=== PATIENT | female | born 1975 | race Native Hawaiian/Other Pacific Islander ===

== ENCOUNTER 2017-06-02 14:37 | Emergency (ER) | payer SELFPAY ==
[2017-06-02 14:48] VITALS: BP 100/67; PULSE 61; RESP 18; TEMP 97.4; O2SAT 100
--- NOTE | 2017-06-02 15:09 | C.PDOC ---
Time Seen by Provider: 06/02/17 14:53 Chief Complaint (Nursing): Upper Extremity Problem/Injury Past Medical History Vital Signs: Last Vital Signs Temp 97.4 F L 06/02/17 14:42 Pulse 61 06/02/17 14:42 Resp 18 06/02/17 14:42 BP 100/67 06/02/17 14:42 Pulse Ox 100 06/02/17 15:09 Family History: States: Unknown Family Hx - Social History Hx Alcohol Use: No Hx Substance Use: No - Immunization History Hx Tetanus Toxoid Vaccination: No Hx Influenza Vaccination: Yes Hx Pneumococcal Vaccination: No ED Course And Treatment O2 Sat by Pulse Oximetry: 100 Disposition - Disposition Disposition Time: 15:08 Condition: UNKNOWN - Clinical Impression Clinical Impression: Patient left without being seen
== END 2017-06-02 14:53 | disposition left against medical advice (07) ==
LOC: C.ER 14:37
DX: Z02.89 Encounter for other administrative examinations (principal); R20.0 Anesthesia of skin